=== PATIENT | male | born 1990 | race Caucasian/White ===

== ENCOUNTER 2018-09-12 15:48 | Emergency (ER) | payer MEDICAID ==
[~2018-09-12] VITALS: Ht 170.2 cm; Wt 80.3 kg
[2018-09-12 15:58] VITALS: Ht 170.2 cm; Wt 80.3 kg
[2018-09-12 18:11] VITALS: BP 112/63
== END 2018-09-12 18:38 | disposition home or self-care (01) ==
LOC: ED 15:48
DX: S61.012A Laceration without foreign body of left thumb without damage to nail, initial encounter (principal); W26.8XXA Contact with other sharp object(s), not elsewhere classified, initial encounter; Y93.89 Activity, other specified; Y92.89 Other specified places as the place of occurrence of the external cause; Y99.8 Other external cause status
CPT/HCPCS: 90715; A4570; J0690; J2001; Q0092

== ENCOUNTER 2019-01-21 20:08 | Emergency (ER) | payer SELFPAY ==
[~2019-01-21] VITALS: Ht 170.2 cm; Wt 83.0 kg
[2019-01-21 20:30] VITALS: Ht 170.2 cm; Wt 83.0 kg
[2019-01-21 21:20] VITALS: BP 142/84
== END 2019-01-21 21:20 | disposition home or self-care (01) ==
LOC: ED 20:08
DX: B02.8 Zoster with other complications (principal); B01.9 Varicella without complication

== ENCOUNTER 2020-05-03 14:42 | Emergency (ER) | payer MEDICAID ==
[~2020-05-03] VITALS: Ht 170.2 cm; Wt 73.9 kg
[2020-05-03 14:45] VITALS: Ht 170.2 cm; Wt 73.9 kg
[2020-05-03 17:30] VITALS: BP 139/82
== END 2020-05-03 17:30 | disposition home or self-care (01) ==
LOC: ED 14:42
DX: S61.012A Laceration without foreign body of left thumb without damage to nail, initial encounter (principal); S61.211A Laceration without foreign body of left index finger without damage to nail, initial encounter; S61.213A Laceration without foreign body of left middle finger without damage to nail, initial encounter; W26.8XXA Contact with other sharp object(s), not elsewhere classified, initial encounter; Y93.89 Activity, other specified; Y92.89 Other specified places as the place of occurrence of the external cause; Y99.8 Other external cause status
CPT/HCPCS: J2001; J2270